=== PATIENT | female | born 1990 | race Caucasian/White ===

== ENCOUNTER 2022-11-04 16:01 | Outpatient (CLI) | payer OTHER, SELFPAY ==
[2022-11-04 18:50] LABS: HDL Cholesterol* 67 mg/dL (>=50); Triglycerides* 118 mg/dL (40-149)
[2022-11-05 19:07] LABS: Cholesterol* 139 mg/dL (90-199); LDL Cholesterol Calculated 48 mg/dL (<100)
== END 2022-11-04 16:02 | disposition home or self-care (01) ==
PROVIDERS: PCP Family Medicine; Visit Provider Registered Nurse
DX: N92.0 Excessive and frequent menstruation with regular cycle (principal); Z13.6 Encounter for screening for cardiovascular disorders
CPT/HCPCS: 80061; 84443

== ENCOUNTER 2022-11-10 07:52 | Outpatient (CLI) | payer OTHER, SELFPAY ==
--- NOTE | 2022-11-10 07:45 | CRLHL7_ITS ---
For Patients: As a result of the Cures Act, medical imaging exams and procedure reports are released immediately into your electronic medical record. You may view this report before your referring provider. If you have questions, please contact your health care provider. DIGITAL DIAGNOSTIC RIGHT MAMMOGRAM USING TOMOSYNTHESIS AND COMPUTER-AIDED DETECTION RIGHT BREAST ULTRASOUND CLINICAL HISTORY: RIGHT breast lump. COMPARISON: None. TECHNIQUE: Digital BILATERAL mammogram in four projections. Tomosynthesis and CAD utilized. Real-time ultrasound imaging of RIGHT breast with imaging documentation. BREAST COMPOSITION: There are areas of scattered fibroglandular density. FINDINGS: BILATERAL mammogram images demonstrate BILATERAL implants are intact. No adenopathy or suspicious masses. No architectural distortion or suspicious calcifications. Targeted RIGHT breast ultrasound performed 6 o`clock 5 cm from the nipple in the area of concern. No sonographic abnormality. No fibrocystic change or mass. IMPRESSION: Normal BILATERAL mammograms and RIGHT breast ultrasound. No evidence of malignancy. RECOMMENDATIONS: Clinical follow-up. Age-appropriate screening mammography. Results and recommendations discussed with the patient. BI-RADS Category 2: Benign A lay language report of this examination will be provided to the patient. Dictated by Matthew Glasgow MD @ 11/10/2022 8:53:33 AM jj/Dictated by: Matthew Glasgow MD @ 11/10/2022 8:53:00 AM (Electronically Signed)
--- NOTE | 2022-11-10 08:15 | CRLHL7_ITS ---
For Patients: As a result of the Cures Act, medical imaging exams and procedure reports are released immediately into your electronic medical record. You may view this report before your referring provider. If you have questions, please contact your health care provider. PLEASE SEE DIGITAL DIAGNOSTIC RIGHT MAMMOGRAM PERFORMED SAME DAY CRL:emily diaz/Dictated by: Matthew Glasgow MD @ 11/10/2022 8:53:00 AM (Electronically Signed)
--- NOTE | 2022-11-10 09:15 | CRLHL7_ITS ---
For Patients: As a result of the Century Cures Act, medical imaging exams and procedure reports are released immediately into your electronic medical record. You may view this report before your referring provider. If you have questions, please contact your health care provider. INDICATION: MENORRHAGIA COMPARISON: none TECHNIQUE: 2D loera scale and color Doppler images were acquired of the pelvis using a transabdominal and transvaginal approach. FINDINGS: Sonographic images demonstrate a normal size and smooth outer contour of the uterus. Uterus measures 9.0 cm in length by 4.3 cm in AP diameter by 4.9 cm in transverse dimension. Right lower uterine segment intramural fibroid measuring 2.0 x 1.8 x 1.7 cm. The endometrial lining measures 13 mm in composite thickness. The right ovary measures 3.7 x 1.4 x 2.4 cm in size and the left ovary measures 3.9 x 2.0 x 1.9 cm. The ovaries demonstrate normal arterial and venous blood flow on color Doppler analysis. There are no suspicious fluid collections within the cul-de-sac. IMPRESSION: Right-sided lower uterine segment intramural fibroid measuring 2 cm. Endometrial thickness 13 millimeters. Dictated by Matthew Glsagow MD @ 11/10/2022 10:26:58 AM (Electronically Signed)
== END 2022-11-10 07:53 | disposition home or self-care (01) ==
LOC: MAMMO 07:52
PROVIDERS: PCP Family Medicine; Visit Provider Registered Nurse
DX: N63.10 Unspecified lump in the right breast, unspecified quadrant (principal); N92.0 Excessive and frequent menstruation with regular cycle; D25.1 Intramural leiomyoma of uterus; R93.89 Abnormal findings on diagnostic imaging of other specified body structures
CPT/HCPCS: 76642; 76830; 76856; 77065; 77067; G0279

== ENCOUNTER 2024-01-05 18:40 | Outpatient (CLI) | payer OTHER, SELFPAY | END 2024-01-05 18:41 | disposition home or self-care (01) | LOC: NFLDREF 18:41 | PROVIDERS: PCP Family Medicine; Visit Provider Registered Nurse | DX: N92.0 Excessive and frequent menstruation with regular cycle (principal) | CPT/HCPCS: 84443 ==

== ENCOUNTER 2024-01-13 15:57 | Outpatient (CLI) | payer OTHER, SELFPAY ==
--- NOTE | 2024-01-13 16:00 | US_ITS ---
Patient: GETACHEW PALMA Facility:?[facility] Patient ID:?[id number] Site Patient ID:?[id number]. Site :?[id number] Study:?US-Pelvis TA/TV-01/13/2024 4:45:14 PM Ordering Physician:SHANE Final Report: INDICATION: menorrhagia COMPARISON: 11/10/2022 TECHNIQUE: 2D loera scale and color Doppler images were acquired of the pelvis using a transabdominal and transvaginal approach. FINDINGS: Circumscribed heterogeneously hypoechoic uterine fibroid is present at the right anterior lower uterine segment measuring 3.8 x 4.4 x 4.0 cm, previously measuring 2.0 cm. Uterus measures 9.6 cm in length by 4.8 cm in AP diameter by 5.4 cm in transverse dimension. The endometrial lining measures 14 mm in composite thickness. The right ovary measures 3.3 x 1.7 x 1.7 in size and the left ovary measures 3.5 x 2.5 x 2.3 cm. The ovaries demonstrate normal arterial and venous blood flow on color Doppler analysis. There are no suspicious fluid collections within the cul-de-sac. Simple left ovarian cyst is present measuring 2.1 x 1.5 x 1.6 cm. IMPRESSION: Increased size of lower uterine segment fibroid now measuring 4.4 cm. This displaces the adjacent endometrium. Endometrium is thickened and heterogeneous measuring 14 millimeters. No endometrial fluid. Simple left ovarian cyst measuring 2.1 cm. Dictated by Matthew Glasgow MD @ 01/14/2024 10:38:52 AM Signed by:?Matthew Glasgow MD @01/14/2024 10:38:52 AM (Electronic Signature)
== END 2024-01-13 15:58 | disposition home or self-care (01) ==
LOC: US 15:58
PROVIDERS: PCP Family Medicine; Visit Provider Registered Nurse
DX: N92.0 Excessive and frequent menstruation with regular cycle (principal); D25.9 Leiomyoma of uterus, unspecified; N83.202 Unspecified ovarian cyst, left side
CPT/HCPCS: 76830; 76856

== ENCOUNTER 2024-04-05 08:50 | Outpatient (CLI) | payer OTHER, SELFPAY | END 2024-04-05 08:51 | disposition home or self-care (01) | LOC: LKVREF 08:51 | PROVIDERS: PCP Family Medicine; Visit Provider Family Medicine | DX: Z13.228 Encounter for screening for other metabolic disorders (principal) | CPT/HCPCS: 80048 ==

== ENCOUNTER 2024-04-27 07:34 | Day surgery (SDC) | payer OTHER, SELFPAY ==
[2024-04-27] VITALS (26 sets, daily range): BP systolic 100–132; BP diastolic 66–94; PULSE 72–109; RESP 12–21; TEMP 36.2–37.6; O2SAT 95–100; BMI 25.6
[2024-04-27] MEDS: LACTATED RINGERS 1000 ML 1,000 ML 100 ML IV ×2 (07:00→10:07)
[2024-04-27] MEDS: SODIUM CHLORIDE 0.9 % (FLUSH) 10 ML SYRINGE IVF (08:22)
[2024-04-27 08:36] LABS: Hemoglobin* 14.8 gm/dL (12.0-16.0)
--- NOTE | 2024-04-27 09:21 | W.PM.GYNPROC ---
Procedure Note Date of procedure: 04/27/24 Will [facility] bill your pro fee for this procedure?: Yes Pre-op diagnosis: 1. Menorrhagia. 2. Right lower uterine segment fibroid. Post-op diagnosis: Same. Procedure: 1. Total laparoscopic hysterectomy. 2. Bilateral-salpingectomies. 3. Diagnostic cystoscopy/ Anesthesia: GETA and other (TAP block.) Complications: None. Surgeon: Racquel Borjas MD Wood Piler: Mandie Almaguer Estimated blood loss (mL): 50 IV fluids (mL): 1,950 Urine Output (mL): 500 Pathology: specimen obtained, sent to pathology (Uterus, bilateral fallopian tubes.) Condition: stable Disposition: PACU Findings: Enlarged globular uterus containing 4-5 cm diameter posterior right lower uterine segment fibroid, weight 196 g, normal fallopian tubes and ovaries bilaterally. Procedure Description: After obtaining informed consent, the patient was taken to the operating room where general anesthesia was obtained without difficulty. She was prepared and draped in the normal sterile fashion in the low dorsal lithotomy position. A Woodard catheter was inserted into the bladder and left to gravity drainage. A medium Graves open-sided speculum was introduced into the vagina. The cervix was visualized and grasped along its anterior lip with a single-tooth tenaculum. The uterus was gently sounded. Sound length was found to be 9.5 cm. The cervix was gently dilated to a #5 dilator. I then placed a large VCare uterine manipulator. The tenaculum and speculum were removed. The green VCare cup was digitally pressed up against the cervix and then cinched in place with the blue accessory cup. I then changed gloves and my attention was turned to the abdomen. The inferior aspect of the umbilical fold was injected with 0.25% Marcaine plain. A 12 mm vertical incision was then made within the umbilical fold using a scalpel. A direct entry technique was used to place an 11 mm laparoscopic port with CO2 gas set to a 5 mmHg. The trocar was removed leaving the sleeve in place. The CO2 gas flow was turned to high flow to achieve pneumoperitoneum. The 10 mm laparoscope was used then to carefully inspect the abdomen and pelvis with findings noted above. Pictures were taken for documentation purposes. The patient was placed in Trendelenburg positioning. Two additional ports were placed in the right (11 mm) and left (5 mm) lower quadrants under direct visualization after first anesthetizing the skin and fascia with 0.25% Marcaine plain. Once the ports were in place, the VCare manipulator was used to elevate the uterus. The ureters were identified bilaterally along their courses in the pelvic sidewalls. The VCare cup was visualized and palpated with a blunt grasper. The left tube was elevated with a graspers. The Olympus Powerseal device was used to dissect the tube from it's ovarian and broad ligament and cornual attachments before removing the tube through a lower port. Excellent hemostasis was obtained. The right tube was elevated with a graspers. The Olympus Powerseal device was used to dissect the right tube from it's ovarian and broad ligament and cornual attachments before removing the tube through a lower port. Excellent hemostasis was obtained. The left round ligament was then sealed in a wide swath and transected with the Olympus Powerseal. Excellent hemostasis was obtained. The broad ligament was then opened using the Olympus Powerseal anteriorly and posteriorly along the cervix from the left within the confines of the VCare cup. Cephald pressure was maintained on the uterine manipulator the whole time. The left uterine vessels were sealed in a wide swath and transected with the Olympus Powerseal, then the tissues over the VCare cup edge on the left side were thinned using the Olympus Powerseal to the midline posteriorly and anteriorly so that the fascial layer could be identified. The right round ligament was then sealed in a wide swath and transected with the Olympus Powerseal. Excellent hemostasis was obtained. The broad ligament was then opened using the halo anteriorly and posteriorly along the cervix from the right within the confines of the VCare cup. Pressure was maintained on the uterine manipulator the whole time. This dissection was difficult and took extra time due to distortion of the uterine anatomy by the large posterior right uterine fibroid. An angled hysteroscope was used for better visualization. The right uterine vessels were sealed in a wide swath and transected with the Olympus Powerseal, then the tissues over the VCare cup edge on the right side were thinned using the Olympus Powerseal to the midline posteriorly and anteriorly so that the fascial layer could be identified. Once an adequate dissection was made circumferentially, the Olympus Powerseal was removed and the [employer]if[employer] bipolar spatula was used to incise the tissue circumferentially around the cervix within the groove of the VCare cup. Once the dissection was completed circumferentially, I was able to go below and remove the uterine manipulator and the uterus. A sterile sponge containing a laparotomy sponge was placed into the vagina to aid in maintaining pneumoperitoneum. The vaginal cuff was reapproximated in a running fashion with a V-Loc suture starting from the left side and running across to the right and then back to the midline where the suture was cut flush with the tissues. The pelvis was copiously irrigated and hemostasis visualized. Preparations were then made for cystoscopy. Methylene blue was administered intravenously along with the IV fluids. The Woodard catheter was removed. The patient was flattened out. Cystoscopy was performed using sterile normal saline as distending medium. The bladder was carefully inspected and noted to be free of filling defects or suture material. Both ureteral orifices were easily visualized and blue-tinged urine jets were noted from both sides. The cystoscope was then removed. The Woodard catheter was replaced into the bladder. I then changed gloves again and my attention was once again turned to the abdomen. The abdomen and pelvis were again irrigated and inspected for hemostasis. There was a tiny arterial bleed from the right lateral aspect of the vaginal cuff closure where it appeared that a small segment of the V lock suture had torn through the tissues. Two interrupted sutures of 0 Vicryl were placed for hemostasis, with the knots tied extracorporeally. Excellent hemostasis was visualized. The right lower quadrant port was removed. The Jamarcus-Emelia device was used to reapproximate the fascia in the right lower quadrant. All remainnig instruments were then removed under direct visualization. Pneumoperitoneum was allowed to escape. The fascia was reapproximated at the umbilicus with an interrupted suture of 0 Vicryl. The skin at all 3 port sites was closed in a subcuticular fashion with 4-0 Vicryl. Surgical glue was then placed over the incisions. The patient tolerated the procedure well. Sponge, lap, needle, and instrument counts were reported as correct x2. The patient was taken to the recovery room awake and in stable condition. She did receive 1 g of IV Ancef preoperatively And 30 mg IV Toradol at the conclusion of the procedure.. Uterine weight was 196 g.
[2024-04-27 09:23] LABS: HCG Qualitative Serum* Negative (Negative)
[2024-04-27] MEDS: CEFAZOLIN 2 GM INJ IVP (09:25)
--- NOTE | 2024-04-27 10:16 | W.ANESCHARGE ---
Anesthesia Charges Start Date/Time Anesthesia Start Date: 04/27/24 Anesthesia Start Time: 09:09 Stop Date/Time Anesthesia Stop Date: 04/27/24 Anesthesia Stop Time: 12:27
--- NOTE | 2024-04-27 10:16 | W.PM.NB ---
Nerve Block Nerve Block Time Seen by Provider: 09:21 Date Seen: 04/27/24 Type of block requested by surgeon for post-operative analgesia: TAP Side: bilateral Time out performed: Yes Verification of patient name: Yes Verification of date of : Yes Site marking: site marked Name of person performing procedure: Tito Continuous monitoring Was continuous monitoring of O2 sat, B/P, phototypesetting equipment monitor, recorded every 15 minutes?: Yes Procedure Checklist: sterile prep, needles and gloves Ultrasound guided. Images saved: Yes Medications given in 5ml increments after negative aspiration: Marcaine %: 0.25 mL: 30 Needle gauge: 20 and Exparel mL: 10 Patient tolerated procedure well: Yes Additional comments: Needle noted between internal oblique and transversus abdominus. Local spread visualized Block Charges Block Charge (with Pro Fee): TAP Bilateral Use of Ultrasound Machine for Block: Yes- US Guidance/pain block
[2024-04-27] MEDS: BUPIVACAINE 0.25% 30 ML INJECTION (10:19)
[2024-04-27] MEDS: METHYLENE BLUE 1 % 10 ml 100 MG INJECTION (11:30)
--- NOTE | 2024-04-27 12:43 | W.ANESCHARGE ---
Anesthesia Charges Start Date/Time Anesthesia Start Date: 04/27/24 Anesthesia Start Time: 09:09 Stop Date/Time Anesthesia Stop Date: 04/27/24 Anesthesia Stop Time: 12:27
[2024-04-27] MEDS: fentaNYL 100 MCG/2 ML inj 50 MCG IVP ×2 (12:47→13:15)
[2024-04-27] MEDS: LACTATED RINGERS 1000 ML 1,000 ML 35 ML IV (13:05)
--- NOTE | 2024-04-27 13:36 | SUR.PHASEI ---
patient met discharge criteria per anesthesia
[2024-04-27] MEDS: HYDROmorphone 0.5 mg/0.5 ml inj IVP (13:45)
[2024-04-27] MEDS: SIMETHICONE 80 MG TAB.CHEW 160 MG PO (13:48)
--- NOTE | 2024-04-27 14:59 | PM.GYNPNPO ---
SUPERVISOR COMPONENT ASSEMBLER - A/P Postoperative Procedures: Procedures Operation Date: 04/27/24 08:45 Actual Procedure Side Surgeon p Total Laparoscopic Hysterectomy, Bilateral Salpingectomy, Diagnostic Cystoscopy Racquel Borjas MD Postoperative day: 0 Postoperative plan: see orders (Will check a stat hemoglobin. If significantly decreased, consider imaging of the abdomen to look for any evidence of intra-abdominal bleeding.) Time Spent With Patient Time: Total time spent is greater than 50% in coordination of care (as documented) at patient's floor/unit and/or counseling patient: Time with patient: less than 15 minutes SUPERVISOR COMPONENT ASSEMBLER- PN:Subj Post-Op Subjective Time Seen by Provider: 14:50 Date Seen: 04/27/24 Post Operative Details: Post-operative day number 0: status post total laparoscopic hysterectomy with bilateral salpingectomy and diagnostic cystoscopy. I was called to see the patient as she was experiencing some sharp pain in the right lower quadrant of her abdomen. She states that the pain is been present ever since she awoke from anesthesia. The pain is nonradiating. She describes tenderness medial and superior to the right lower quadrant incision. The pain feels deep rather than superficial. She denies and bruising or any bleeding from the incisions. She is experiencing no heavy bleeding from the vagina. SUPERVISOR COMPONENT ASSEMBLER-PN: Obj Exam Physical Exam: Vital signs: Temp Pulse Resp BP Pulse Ox O2 Del Method 97.8 F 91 16 101/69 98 Room Air 04/27/24 14:00 04/27/24 14:00 04/27/24 14:00 04/27/24 14:00 04/27/24 14:00 04/27/24 14:00 Constitutional: Constitutional: no acute distress Routine Respiratory Exam: Comments: Normal respiratory effort. Routine Abdominal Exam: Abdominal: Present distended (Mildly) and tenderness (Point tenderness medial and superior to the right lower quadrant port site) Comments: The skin at all three port sites is unremarkable, without erythema or ecchymoses. Surgical glue was present over the incisions and there is no drainage or bleeding. Urinary Catheter Management: Urethral: Cath placed during this visit: yes Urethral indwelling: Yes Reason for continuing: surgical procedure Insertion date: 04/27/24 Insertion time: 10:00 SUPERVISOR COMPONENT ASSEMBLER - PN: Obj Data Labs Labs: Laboratory Results - last 24 hr 04/27/24 08:26 Hgb 14.8 HCG, Qual Negative Blood Type O Negative Antibody Screen NEGATIVE
[2024-04-27] MEDS: OXYCODONE 5 MG TABLET PO ×3 (15:15→23:54)
--- NOTE | 2024-04-27 15:20 | PC.NURSE ---
Nurse note: Pt was BTF from PACU at 1330. Reports sharp RLQ pain at 4/10 on arrival. Dilaudid x1 dose given @ 1345 with short term relief. Pt reports pain significantly increased to 7/[address] Borjas rounded and palpated abdomen. PRN oxycodone first dose given @ 1515. Lap sites x3 RAJIV with dermabond C/D/I. Woodard catheter intact draining clear blue urine. Pt is A&O, VSS and afebrile. Denies nausea or dizziness at this time. PIV in right hand infusing LR @ 35 mL/hr. Stat Hgb ordered per Dr. Borjas and considering CYBER POLICY AND STRATEGY PLANNER pump for pain control. Patient's has been at bedside and attentive to patient's needs.
[2024-04-27] MEDS: KETOROLAC 30 MG/ML inj IVP (18:39)
[2024-04-28] MEDS: KETOROLAC 30 MG/ML inj IVP (00:58)
[2024-04-28 03:10] VITALS: BP 109/66; PULSE 90; RESP 16; TEMP 36.8; O2SAT 96
[2024-04-28] MEDS: LACTATED RINGERS 1000 ML 1,000 ML 35 ML IV (03:11)
[2024-04-28] MEDS: OXYCODONE 5 MG TABLET PO ×4 (05:46→17:14)
[2024-04-28 06:43] LABS: Hemoglobin* 12.1 gm/dL (12.0-16.0)
[2024-04-28 07:00] VITALS: BP 114/77; PULSE 84; RESP 24; TEMP 36.8; O2SAT 99
[2024-04-28 07:07] LABS: Creatinine* 0.8 mg/dL (0.5-1.5); Est. Creatinine Clearance* 77.63; Estimated Glomerular Filt Rate 98 ml/min
--- NOTE | 2024-04-28 07:46 | PC.NURSE ---
END OF SHIFT NOTE: PT PLEASANT AND COOPERATIVE. A&Ox3. DENIES CP, SOB, N/V. AMBULATES WITH SBA AND GB. VSS ON RA; AFEBRILE. ABDOMINAL BINDER ON. PT REPORTS RIGHT SIDED ABD PAIN 2-6/10 WITH RELIEF FROM PRN PAIN MEDS (SEE EMAR). SIMMS IN PLACE, WITH BLUE OUTPUT. LR@35ML/HR. ENCOURAGED PO INTAKE. CALL LIGHT WITHIN PT?S REACH.?
--- NOTE | 2024-04-28 09:01 | P.GYNPN_ITS ---
MOTOR VEHICLE PARTS INTERPRETER - A/P Postoperative Procedures: Procedures Operation Date: 04/27/24 08:45 Actual Procedure Side Surgeon p Total Laparoscopic Hysterectomy, Bilateral Salpingectomy, Diagnostic Cystoscopy Racquel Borjas MD Postoperative day: 1 Postoperative status: marginal pain control and other (I am concerned about the persistent RLQ pain and Hgb drop. Could be musculoskeletal pain form fasical cl osure at port site and dilutional Hgb drop, but will proceed with imaging to rule out intra-abdominal bleeding.) Postoperative plan: see orders (CT scan of abdomen/pelvis with contrast.) Time Spent With Patient Time: Total time spent is greater than 50% in coordination of care (as documented) at patient's floor/unit and/or counseling patient: Time with patient: less than 15 minutes MOTOR VEHICLE PARTS INTERPRETER- PN:Subj Post-Op Subjective Time Seen by Provider: 08:45 Date Seen: 04/28/24 Post Operative Details: Post-operative day number 1: status post total laparoscopic hysterectomy with bilateral salpingectomy and diagnostic cystoscopy. She continues to have persistent right lower quadrant sharp abdominal pain, nonradiating. No pain on the left. Woodard catheter was just removed, has not yet voided. Is passing flatus, no BM. Denies nausea or vomiting. Can ambulate slowly or with assistance. Subjective: pain not well controlled and passing flatus MOTOR VEHICLE PARTS INTERPRETER-PN: Obj Exam Physical Exam: Vital signs: Temp Pulse Resp BP Pulse Ox O2 Del Method 98.2 F 90 16 109/66 96 Room Air 04/28/24 03:10 04/28/24 03:10 04/28/24 03:10 04/28/24 03:10 04/28/24 03:10 04/28/24 03:10 Narrative: 3000 mL positive fluid balance noted. Constitutional: Constitutional: cooperative Comments: Appears fairly comfortable, though sitting very still to control abdominal discomfort. Detailed Abdominal Exam: Comments: Mild distention, tender RLQ Urinary Catheter Management: Urethral: Cath placed during this visit: yes Urethral indwelling: Yes Reason for continuing: surgical procedure Insertion date: 04/27/24 Insertion time: 10:00 MOTOR VEHICLE PARTS INTERPRETER - PN: Obj Data Labs Labs: Laboratory Results - last 24 hr 04/27/24 04/27/24 04/28/24 08:26 15:28 06:15 Hgb 14.0 12.1 Creatinine 0.8 Estimated Creat Clear 77.63 Estimated GFR 98 HCG, Qual Negative Blood Type O Negative Antibody Screen NEGATIVE
--- NOTE | 2024-04-28 09:10 | CRLHL7_ITS ---
For Patients: As a result of the Century Cures Act, medical imaging exams and procedure reports are released immediately into your electronic medical record. You may view this report before your referring provider. If you have questions, please contact your health care provider. Indication: Right lower quadrant pain, decreasing hemoglobin status post laparoscopic hysterectomy Technique: Volumetric multidetector CT images of the abdomen and pelvis were obtained after the administration of intravenous contrast. 69 cc Isovue 370 low osmolar intravenous contrast Comparison: None available. Findings: There is basilar atelectasis and parenchymal scar. The liver is normal in attenuation without intrahepatic biliary ductal dilatation. The portal vein is patent. The gallbladder is contracted. There is no significant common biliary ductal dilatation or abrupt cut off. The spleen is normal in enhancement and size. The stomach and duodenum are grossly unremarkable. The pancreas is normal in enhancement without significant atrophy. The adrenal glands are unremarkable. The kidneys demonstrate preserved corticomedullary differentiation without evidence of obstructive uropathy. There is moderate fluid seen throughout the colon and rectum. The central small bowel is decompressed. The appendix is not visualized. There is no significant mesenteric, retroperitoneal, or pelvic sidewall lymph nodes. The aorta is nonaneurysmal. There is no significant atherosclerotic disease appreciated. Postoperative changes of the pelvis status post hysterectomy with minimal fluid along the margin of the vaginal stump without evidence of hematoma. Otherwise the pelvic viscera are grossly within normal limits. There are scattered foci of intra-abdominal free air and air within the abdominal wall and extraperitoneal space of the pelvis consistent with recent laparoscopic insufflation. The anterior abdominal wall is intact without significant hernias. The lumbar vertebral body heights are grossly maintained in satisfactory alignment without evidence of displaced fracture, lytic or blastic lesion. Impression: Postoperative changes status post recent hysterectomy with trace fluid along the vaginal cuff without evidence of large volume hyperdense accumulation within the abdomen or pelvis to suggest active hemorrhage and/or hematoma formation. Minimal postoperative insufflation gas is seen throughout the dependent abdomen. Please note that all CT scans at this facility use dose modulation, iterative reconstruction, and/or weight-based dosing when appropriate to reduce radiation dose to as low as reasonably achievable. Dictated by Erich Martino MD @ 04/28/2024 11:32:01 AM (Electronically Signed)
[2024-04-28] MEDS: ACETAMINOPHEN 325 MG TABLET 650 MG PO ×2 (09:13→16:06)
--- NOTE | 2024-04-28 12:05 | PM.GYNPNPO ---
RIBBING MACHINE OPERATOR - A/P Postoperative Procedures: Procedures Operation Date: 04/27/24 08:45 Actual Procedure Side Surgeon p Total Laparoscopic Hysterectomy, Bilateral Salpingectomy, Diagnostic Cystoscopy Racquel Borjas MD Postoperative day: 1 Postoperative status: marginal pain control Postoperative plan: routine post-op care Time Spent With Patient Time: Total time spent is greater than 50% in coordination of care (as documented) at patient's floor/unit and/or counseling patient: Time with patient: less than 15 minutes RIBBING MACHINE OPERATOR- PN:Subj Post-Op Subjective Date Seen: 04/28/24 Post Operative Details: CT abdomen and pelvis results reviewed, normal postop changes, no evidence of intra-abdominal bleeding or pathology. RIBBING MACHINE OPERATOR-PN: Obj Exam Physical Exam: Vital signs: Temp Pulse Resp BP Pulse Ox O2 Del Method 98.2 F 90 16 109/66 96 Room Air 04/28/24 03:10 04/28/24 03:10 04/28/24 03:10 04/28/24 03:10 04/28/24 03:10 04/28/24 03:10 Urinary Catheter Management: Urethral: Cath placed during this visit: yes Urethral indwelling: Yes Reason for continuing: surgical procedure Insertion date: 04/27/24 Insertion time: 10:00 RIBBING MACHINE OPERATOR - PN: Obj Data Labs Labs: Laboratory Results - last 24 hr 04/27/24 04/28/24 15:28 06:15 Hgb 14.0 12.1 Creatinine 0.8 Estimated Creat Clear 77.63 Estimated GFR 98
[2024-04-28 13:20] VITALS: BP 128/82; PULSE 74; RESP 20; TEMP 36.8; O2SAT 98
--- NOTE | 2024-04-28 19:25 | PC.NURSE ---
Discharge - Pt alert, oriented, cooperative. Reporting pain as 6/10 that increases with position change. Up with standby assistance in room. Able to void independently, Woodard catheter removed at start of shift with tip intact. Pain managed with medications per MAR with pt reporting improved comfort. Lap sites x 3 open to air and free of drainage. Pt wearing abdominal binder to improve comfort, RN provided education regarding splinting and techniques to decrease pain with movement. Discharge education provided to pt and spouse, understanding verbalized. IV removed with catheter intact. Pt discharged to home via wheelchair with spouse at approximately 1745.
== END 2024-04-28 17:44 | disposition home or self-care (01) ==
LOC: OR 07:37 → MEDSURG 07:37
PROVIDERS: PCP Family Medicine; Visit Provider Obstetrics & Gynecology
PROC: 0UT94ZZ Resection of Uterus, Percutaneous Endoscopic Approach (ICD-10-PCS; CPT 58571; principal; 2024-04-27 08:45)
DX: N92.0 Excessive and frequent menstruation with regular cycle (principal); D25.1 Intramural leiomyoma of uterus; G89.18 Other acute postprocedural pain; R10.31 Right lower quadrant pain; R71.0 Precipitous drop in hematocrit; J45.41 Moderate persistent asthma with (acute) exacerbation
CPT/HCPCS: 58571; 00840; 36415; 64488; 74177; 76942; 81025; 82565; 84703; 85018; 86850; 86900; 86901; 88307; A9270; C9290; J0330; J0665; J0690; J1100; J1170; J1630; J1885; J2250; J2405; J2704; J3010; J3490; J7120; Q9967

== ENCOUNTER 2024-05-06 15:03 | Inpatient (IN) | payer OTHER, SELFPAY ==
[2024-05-06] VITALS (7 sets, daily range): BP systolic 122–137; BP diastolic 78–95; PULSE 86–98; RESP 14–20; TEMP 36.7–37.4; O2SAT 95–98; BMI 25.6; BMI 26.4
--- NOTE | 2024-05-06 15:41 | CRLHL7_ITS ---
For Patients: As a result of the Century Cures Act, medical imaging exams and procedure reports are released immediately into your electronic medical record. You may view this report before your referring provider. If you have questions, please contact your health care provider. Indication: Postop fever and pain Technique: Volumetric multidetector CT images of the abdomen and pelvis were obtained after the administration of intravenous contrast. 69 cc Isovue 370 low osmolar intravenous contrast Comparison: CT abdomen and pelvis April 28, 2024 Findings: There is basilar atelectasis and parenchymal scar. The liver is normal in attenuation without intrahepatic biliary ductal dilatation. The portal vein is patent. The gallbladder is unremarkable without evidence of radiopaque calculus. There is no significant common biliary ductal dilatation or abrupt cut off. The spleen is normal in enhancement and size. There is mild thickening of the gastric antrum and gastric rugal folds. The pancreas is normal in enhancement without significant atrophy. The adrenal glands are unremarkable. The kidneys demonstrate preserved corticomedullary differentiation without evidence of obstructive uropathy. There is [id number] stool seen throughout the colon with questionable mild inflammatory change along the anterior-inferior aspect of the mid sigmoid colon and rectosigmoid colon. The appendix is unremarkable. There is no significant mesenteric, retroperitoneal, or pelvic sidewall lymph nodes. The aorta is nonaneurysmal. There is no significant atherosclerotic disease appreciated. Redemonstration of prior hysterectomy with interval development of a new rim enhancing fluid collection along the vaginal stump measuring 4.2 x 3.4 centimeters in greatest dimension with minimal associated secondary inflammation of adjacent loops of bowel. Previously seen postoperative air throughout the abdominal compartment has resolved from previous exam. No evidence of free intra-abdominal fluid. The anterior abdominal wall is intact without significant hernias. The lumbar vertebral body heights are grossly maintained in satisfactory alignment without evidence of displaced fracture, lytic or blastic lesion. Impression: Interval development of a 3.4 x 4.2 centimeter rim enhancing abscess just along the vaginal cuff of previously seen hysterectomy. There is likely mild secondary inflammatory change of adjacent loops of colon and small bowel. Interval resolution of previously seen scattered foci of insufflation air from previous exam. No other new acute intra-abdominal abnormalities are appreciated. Please note that all CT scans at this facility use dose modulation, iterative reconstruction, and/or weight-based dosing when appropriate to reduce radiation dose to as low as reasonably achievable. Dictated by Erich Martino MD @ 05/06/2024 4:23:07 PM (Electronically Signed)
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
[2024-05-06 15:57] LABS: Lactate* 0.5 mmol/L (0.5-1.9)
[2024-05-06 16:01] LABS: Basophils Percent Auto 0.2 % (0.0-3.0); Eosinophils Percent Auto 1.1 % (0.0-7.0); Hemoglobin* 12.8 gm/dL (12.0-16.0); Immature Granulocytes Pct Auto 0.3 %; Lymphocytes Percent Auto 9.4 % (20-44); Mean Corpuscular HGB Conc 34 gm/dL (32-36); Mean Corpuscular Hemoglobin 30 pg (26-34); Mean Corpuscular Volume 89 fL (80-100); Monocytes Percent Auto 10.3 % (0.0-11.0); Neutrophils Percent Auto 78.7 % (42.0-72.0); Platelet Count* 291 K/uL (140-440); RDW Coefficient of Variation % 12.3 % (11.5-15.5); Red Blood Count 4.28 m/uL (4.00-5.20); White Blood Count* 12.29 K/uL (4.50-11.00)
[2024-05-06] MEDS: 0.9 % SODIUM CHLORIDE 1000 ml 1,000 ML IV (16:02)
[2024-05-06 16:07] LABS: Slide Review Reflex No
[2024-05-06 16:13] LABS: Appearance Urine Clear (Clear); Bilirubin Urine Negative (Negative); Blood Urine 3+ (Negative); Color Urine Yellow (Yellow); Glucose Urine Negative (Negative); Ketones Urine Negative (Negative); Leukocyte Esterase Urine Trace (Negative); Nitrite Urine Negative (Negative); Protein Urine 2+ (Negative); Specific Gravity Urine 1.015 (1.000-1.030); Urobilinogen Urine 0.2 (0.2-1.0); pH Urine 6.5 (5.0-8.5)
[2024-05-06 16:15] LABS: Chloride* 104 mmol/L (96-114)
[2024-05-06 16:16] LABS: Potassium* 3.7 mmol/L (3.6-5.1); Sodium* 137 mmol/L (135-149)
[2024-05-06 16:17] LABS: Albumin* 4.2 g/dL (3.3-5.0)
[2024-05-06 16:18] LABS: Creatinine* 0.8 mg/dL (0.5-1.5); Est. Creatinine Clearance* 77.63; Estimated Glomerular Filt Rate 98 ml/min
[2024-05-06 16:19] LABS: Anion Gap 8 mEq/L (7-15); Blood Urea Nitrogen* 11 mg/dL (5-24); Calcium* 8.9 mg/dL (8.4-10.6); Carbon Dioxide* 25 mmol/L (20-32); Glucose* 106 mg/dL (60-115)
[2024-05-06 16:19] LABS: Bacteria Urine Few; Squamous Epithelial Cell Urine Few (None-Few)
[2024-05-06 16:20] LABS: Alanine Aminotransferase* 36 U/L (4-35); Alkaline Phosphatase* 82 U/L (40-150); Aspartate Amino Transferase* 32 U/L (12-35); Bilirubin Direct* 0.4 mg/dL (0.0-0.5); Bilirubin Total* 0.6 mg/dL (0.1-1.5); Lipase* 39 U/L (23-300); Total Protein* 7.3 g/dL (6.0-8.3)
[2024-05-06 16:41] LABS: C Reactive Protein* 25.6 mg/dL (0.5-1.0)
[2024-05-06] MEDS: KETOROLAC 30 MG/ML inj IVP ×2 (17:22→22:54)
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
[2024-05-06] MEDS: LACTATED RINGERS 1000 ML 1,000 ML 125 ML IV (17:40)
[2024-05-06] MEDS: PIPERACILLIN/TAZOBACTAM 3.375 GM in 0.9 % SODIUM CHLORIDE Mini-bag 100 ML IVPB ×2 (17:50→22:54)
--- NOTE | 2024-05-06 18:17 | ED.NURSE ---
Pt reporting pain at IV site L AC #20G and IV pump issues at this site. #20G IV started in R FA and ABX/IVF switched to new IV site. Pt reporting relief with new IV. Kristopher Rivera/S RN aware.
[2024-05-06] MEDS: ACETAMINOPHEN 325 MG TABLET 650 MG PO (20:04)
[2024-05-07] VITALS (10 sets, daily range): BP systolic 122–147; BP diastolic 79–97; PULSE 90–101; RESP 16–18; TEMP 36.7–37.9; O2SAT 96–99
[2024-05-07] MEDS: LACTATED RINGERS 1000 ML 1,000 ML 125 ML IV ×3 (01:12→20:02)
[2024-05-07] MEDS: PIPERACILLIN/TAZOBACTAM 3.375 GM in 0.9 % SODIUM CHLORIDE Mini-bag 100 ML IVPB ×4 (05:26→22:56)
[2024-05-07] MEDS: KETOROLAC 30 MG/ML inj IVP ×2 (05:38→11:14)
[2024-05-07] MEDS: ONDANSETRON 2 MG/ML inj 4 MG IVP ×3 (05:38→19:23)
[2024-05-07] MEDS: ACETAMINOPHEN 325 MG TABLET 650 MG PO ×3 (05:54→20:02)
[2024-05-07 06:52] LABS: Basophils Absolute Auto 0.04 K/uL (0.00-0.30); Basophils Percent Auto 0.4 % (0.0-3.0); Eosinophils Absolute Auto 0.21 K/uL (0.00-0.50); Hematocrit 35.5 % (33.0-51.0); Hemoglobin* 11.7 gm/dL (12.0-16.0); Immature Granulocytes Abs Auto 0.02 K/uL (0.00-0.30); Immature Granulocytes Pct Auto 0.2 %; Lymphocytes Percent Auto 13.2 % (20-44); Mean Corpuscular HGB Conc 33 gm/dL (32-36); Mean Corpuscular Hemoglobin 30 pg (26-34); Mean Corpuscular Volume 89 fL (80-100); Monocytes Percent Auto 12.1 % (0.0-11.0); Neutrophils Percent Auto 72.1 % (42.0-72.0); Platelet Count* 287 K/uL (140-440); RDW Coefficient of Variation % 12.3 % (11.5-15.5); Red Blood Count 3.97 m/uL (4.00-5.20); White Blood Count* 10.59 K/uL (4.50-11.00)
[2024-05-07 07:16] LABS: Slide Review Reflex No
--- NOTE | 2024-05-07 07:36 | PC.NURSE ---
End of shift note [id number]: Pt alert & oriented x 4 and able to make needs known. She continues on LR at 125 mLs/hr per order. Pt reported abdominal pain near navel as 5/10 at start of shift though declined PRN Dilaudid when discussed. Scheduled Toradol administered per order. Steri strip dressings to abdomen noted to be C/D/I. Pt refuses SCDs. Pt transfers/ambulates independently in room. PRN Tylenol given for temp of 99.8 this morning and PRN Zofran given for c/o nausea.
[2024-05-07] MEDS: DOCUSATE SODIUM 100 MG CAPSULE PO (08:37)
--- NOTE | 2024-05-07 10:32 | P.GYNPN_ITS ---
Progress Note: A&P Assessment and plan (1) Pelvic abscess in female: Problem details: Post-hysterectomy Status: Acute Assessment and Plan: She has had no fever since initiation of Zosyn. White count has normalized overnight. Continues to have considerable pain in her pelvis, which may persist for some time due to inflammation. I am pleased to see evidence of normal bowel function. We did discuss management of constipation with laxative, but she declines at this time. I will continue to follow her temperatures as well as her white blood count on a daily basis. I plan to order pelvic ultrasound early Thursday morning to re-evaluate the size of the abscess. This abscess is of an intermediate size, and may require drainage, but I am pleased by the return of bowel function and normalization of white blood count, and think that continued antibiotic therapy alone is an acceptable strategy. Should intervention be required, either transvaginal drainage or transfer for CT or ultrasound-guided abscess drainage would be 1 consideration, as would laparoscopy or laparotomy with abscess drainage. I discussed these possible approaches with patient. I will continue to follow for culture result. PROBATION AND PAROLE OFFICER- PN:Subj Non-OR Subjective Date Seen: 05/07/24 Interval history: Postoperative day 10 Hospital day 2 Anna is a 33-year-old woman who is status post total laparoscopic hysterectomy, bilateral salpingectomy and cystoscopy on 04/27/2024 for benign indications, readmitted on 05/06/2024 with pelvic abscess adjacent to the vaginal cuff, measuring 4.2 x 3.[address] scan from that day. She has been maintained on Zosyn every 6 hours since admission. Her 1st dose wa s 5:15 p.m. on 05/06/2024. She reports some night sweats last night. She thinks she is overall feeling better than last night. She endorses decreased appetite over the last few days, and some nausea when attempting to eat last night. This was managed with Zofran. This morning, she was able to eat a small amount of solid foods. She is now passing more flatus. She has not had a bowel movement in a couple days. She did have very hard stools at the time of her last bowel movement, and it was quite painful. She has been taking Colace twice daily. The CT scan from 05/06/2024 does show mild to moderate stool within the colon, as well as some inflammation surrounding bowel loops in the pelvis. Pain is currently managed with out Dilaudid. She is using only IV Toradol. She has declined any narcotics due to concerns with further constipation. She is able to ambulate and urinate without difficulty. PROBATION AND PAROLE OFFICER-PN: Obj Exam Physical Exam: Vital signs: Temp Pulse Resp BP Pulse Ox O2 Del Method 98.4 F 91 18 122/80 96 Room Air 05/07/24 07:00 05/07/24 07:00 05/07/24 07:00 05/07/24 07:00 05/07/24 07:00 05/07/24 07:00 Narrative: General: Pleasant, sitting in her chair, appears pained Heart: Regular rate and rhythm, no murmur or gallop Lungs: Clear to auscultation bilaterally Abdomen: Normoactive bowel sounds in all 4 quadrants. Soft throughout, with no tenderness or rigidity noted in her upper abdomen. She has notable tenderness to palpation in the suprapubic region, extending to the right lower quadrant. This is accompanied by voluntary guarding. Lower extremities: No edema or erythema PROBATION AND PAROLE OFFICER - PN: Obj Data Labs Labs: Laboratory Results - last 24 hr 05/06/24 05/06/24 05/07/24 15:52 16:08 06:06 WBC 12.29 H 10.59 RBC 4.28 3.97 L Hgb 12.8 11.7 L Hct 38.0 35.5 MCV 89 89 MCH 30 30 MCHC 34 33 RDW Coeff of Arely 12.3 12.3 Plt Count 291 287 Neut % (Auto) 78.7 H 72.1 H Lymph % (Auto) 9.4 L 13.2 L [place] % (Auto) 10.3 12.1 H Eos % (Auto) 1.1 2.0 Baso % (Auto) 0.2 0.4 Neut # (Auto) 9.70 H 7.60 H Lymph # (Auto) 1.20 1.40 [place] # (Auto) 1.30 H 1.30 H Eos # (Auto) 0.10 0.21 Baso # (Auto) 0.00 0.04 Abs Immat Gran (auto) 0.00 0.02 Imm/Tot Granulo (auto) 0.3 0.2 Sodium 137 Potassium 3.7 Chloride 104 Carbon Dioxide 25 Anion Gap 8 BUN 11 Creatinine 0.8 Estimated Creat Clear 77.63 Estimated GFR 98 Glucose 106 Lactate 0.5 Calcium 8.9 Total Bilirubin 0.6 Direct Bilirubin 0.4 AST 32 ALT 36 H Alkaline Phosphatase 82 C-Reactive Protein 25.6 H Total Protein 7.3 Albumin 4.2 Lipase 39 Urine Color Yellow Urine Appearance Clear Urine pH 6.5 Ur Specific [place] 1.015 Urine Protein 2+ A Urine Glucose (UA) Negative Urine Ketones Negative Urine Blood 3+ A Urine Nitrite Negative Urine Bilirubin Negative Urine Urobilinogen 0.2 Ur Leukocyte Esterase Trace A Urine RBC 2-5 A Urine WBC 2-5 Ur Squamous Epith Cells Few Urine Bacteria Few A
[2024-05-07] MEDS: SIMETHICONE 80 MG TAB.CHEW 160 MG PO (14:32)
--- NOTE | 2024-05-07 15:01 | P.GYNPN_ITS ---
Progress Note: A&P Assessment and plan (1) Pelvic abscess in female: Problem details: Post-hysterectomy Status: Acute Assessment and Plan: continue current management (2) Tension headache: Status: Acute Assessment and Plan: Benadryl 25 mg PO now. This will help with sleep. (3) Chest pain: Status: Acute Assessment and Plan: Given her description, vital sign and exam, I do not suspect cardiopulmonary etiology. Symptoms are mild. Continue to observe. FIELD CROPS HARVEST MACHINE OPERATOR- PN:Subj Non-OR Subjective Date Seen: 05/07/24 Interval history: Postoperative day 10 Hospital day 2 Anna is a 33-year-old woman who is status post total laparoscopic hysterectomy, bilateral salpingectomy and cystoscopy on 04/27/2024 for benign indications, readmitted on 05/06/2024 with pelvic abscess adjacent to the vaginal cuff, measuring 4.2 x 3.[address] scan from that day. She has been maintained on Zosyn every 6 hours since admission. Her 1st dose was 5:15 p.m. on 05/06/2024. I was called by RN with report of chest pain. Anna reports intermittent mild pain over her upper sternum. No change in symptoms with walking, pressing on sternum, inspiration / expiration. She has the sensation of phlegm and needing to cough. She is able to tolerate walking the halls, and was doing so upon my arrival. No tachycardia, tachypnea, hypoxia. She also has a headache wrapping around from her frontal region to her occiput. She didn't sleep well last night. She reports seasonal allergies. FIELD CROPS HARVEST MACHINE OPERATOR-PN: Obj Exam Physical Exam: Vital signs: Temp Pulse Resp BP Pulse Ox O2 Del Method 98.3 F 91 18 138/97 H 98 Room Air 05/07/24 11:00 05/07/24 11:00 05/07/24 11:00 05/07/24 11:00 05/07/24 11:05/07/24 11:00 Narrative: General: Pleasant, appears tired, walking slowing Heart: Regular rate and rhythm, no murmur or gallop Lungs: Clear to auscultation bilaterally Lower extremities: No edema or erythema EKG computer read is sinus rhythm with sinus arrhythmia FIELD CROPS HARVEST MACHINE OPERATOR - PN: Obj Data Labs Labs: Laboratory Results - last 24 hr 05/06/24 05/06/24 05/07/24 15:52 16:08 06:06 WBC 12.29 H 10.59 RBC 4.28 3.97 L Hgb 12.8 11.7 L Hct 38.0 35.5 MCV 89 89 MCH 30 30 MCHC 34 33 RDW Coeff of Arely 12.3 12.3 Plt Count 291 287 Neut % (Auto) 78.7 H 72.1 H Lymph % (Auto) 9.4 L 13.2 L [place] % (Auto) 10.3 12.1 H Eos % (Auto) 1.1 2.0 Baso % (Auto) 0.2 0.4 Neut # (Auto) 9.70 H 7.60 H Lymph # (Auto) 1.20 1.40 [place] # (Auto) 1.30 H 1.30 H Eos # (Auto) 0.10 0.21 Baso # (Auto) 0.00 0.04 Abs Immat Gran (auto) 0.00 0.02 Imm/Tot Granulo (auto) 0.3 0.2 Sodium 137 Potassium 3.7 Chloride 104 Carbon Dioxide 25 Anion Gap 8 BUN 11 Creatinine 0.8 Estimated Creat Clear 77.63 Estimated GFR 98 Glucose 106 Lactate 0.5 Calcium 8.9 Total Bilirubin 0.6 Direct Bilirubin 0.4 AST 32 ALT 36 H Alkaline Phosphatase 82 C-Reactive Protein 25.6 H Total Protein 7.3 Albumin 4.2 Lipase 39 Urine Color Yellow Urine Appearance Clear Urine pH 6.5 Ur Specific [place] 1.015 Urine Protein 2+ A Urine Glucose (UA) Negative Urine Ketones Negative Urine Blood 3+ A Urine Nitrite Negative Urine Bilirubin Negative Urine Urobilinogen 0.2 Ur Leukocyte Esterase Trace A Urine RBC 2-5 A Urine WBC 2-5 Ur Squamous Epith Cells Few Urine Bacteria Few A
--- NOTE | 2024-05-07 15:21 | PC.NURSE ---
End of Shift: Patient pleasant and cooperative, A&O. VSS, afebrile. Dressings on abdomen C/D/I. Patient reports pain at her incision sites today managed with PRN medication, see MAR. Patient has also been reporting nausea this shift, managed with PRN medication, see MAR. Patient reports feeling chest pain and tightness at the end of my shift, as well as feeling slightly short of breath, MD notified, EKG complete. Lung sounds CTA. Gave PRN medication per MD. Independent.
[2024-05-07] MEDS: IBUPROFEN 600 MG TABLET PO (19:22)
[2024-05-07] MEDS: HYDROmorphone 2 MG TABLET PO (22:55)
[2024-05-07] MEDS: diphenhydrAMINE 25 MG CAPSULE PO (22:56)
[2024-05-08] VITALS (8 sets, daily range): BP systolic 116–137; BP diastolic 76–100; PULSE 75–88; RESP 16–20; TEMP 36.6–37.1; O2SAT 94–98
[2024-05-08] MEDS: LACTATED RINGERS 1000 ML 1,000 ML 125 ML IV (02:59)
[2024-05-08] MEDS: IBUPROFEN 600 MG TABLET PO ×3 (05:52→18:03)
[2024-05-08] MEDS: PIPERACILLIN/TAZOBACTAM 3.375 GM in 0.9 % SODIUM CHLORIDE Mini-bag 100 ML IVPB ×4 (05:53→22:47)
[2024-05-08] MEDS: 0.9 % SODIUM CHLORIDE 250 ml IV (05:55)
[2024-05-08] MEDS: ONDANSETRON 2 MG/ML inj 4 MG IVP ×3 (06:03→18:03)
--- NOTE | 2024-05-08 06:39 | PC.NURSE ---
End of shift note [id number]: Pt remains independent with transferring/ambulation and remains on LR at 125 mL/hr. PRN Ibuprofen given for pain control as well as PRN Tylenol to reduce 100.3 temp noted last evening. Temp noted to be 98.6 after receiving Tylenol. Training Program Developer provided update to Dr. Stock who would like pt?s blood cultures resumed if pt has any further fevers of 100.4 or greater. Pt afebrile for the remainder of the shift with last temp of 98.7 noted after 0600. She states she did have some night sweats last night though reported less than the previous night and reported better sleep quality when asked. Pt continent of bladder and reports having BM yesterday (05/07/24). Pt requested to take PRN Dilaudid at HS for what she reported as 7/10 abdominal pain which was effective upon followup. Ice has also been utilized for pain control throughout the shift. Incisions to abdomen remain STEAM PRESS OPERATOR with steri strips in place and no warmth, edema, redness or drainage observed upon inspection. Pt remains alert & oriented x 4 and able to make needs known. Intermittent nausea effectively treated with PRN Zofran IVP. Pt remains on IV ABX to treat post op abscess. ?
[2024-05-08 07:24] LABS: Basophils Absolute Auto 0.03 K/uL (0.00-0.30); Basophils Percent Auto 0.3 % (0.0-3.0); Eosinophils Absolute Auto 0.33 K/uL (0.00-0.50); Eosinophils Percent Auto 3.7 % (0.0-7.0); Hematocrit 33.1 % (33.0-51.0); Immature Granulocytes Abs Auto 0.01 K/uL (0.00-0.30); Immature Granulocytes Pct Auto 0.1 %; Lymphocytes Percent Auto 15.3 % (20-44); Mean Corpuscular HGB Conc 33 gm/dL (32-36); Mean Corpuscular Hemoglobin 30 pg (26-34); Mean Corpuscular Volume 90 fL (80-100); Monocytes Percent Auto 10.6 % (0.0-11.0); Platelet Count* 289 K/uL (140-440); RDW Coefficient of Variation % 12.5 % (11.5-15.5); Red Blood Count 3.67 m/uL (4.00-5.20)
[2024-05-08] MEDS: ACETAMINOPHEN 325 MG TABLET 650 MG PO ×2 (07:40→14:28)
[2024-05-08 07:43] LABS: Slide Review Reflex No
--- NOTE | 2024-05-08 11:42 | PM.GYNPNNOR ---
Progress Note: A&P Assessment and plan (1) Pelvic abscess in female: Problem details: Post-hysterectomy Status: Acute Assessment and Plan: Low-grade fever last night. Despite that, white count continues in normal range. Continues to have pain in her pelvis and abdomen, which may persist for some time due to inflammation, but it does seem to have improved on exam. I am pleased to see evidence of normal bowel function and return of bowel movements. I will continue to follow her temperatures as well as her white blood count on a daily basis. I plan to order pelvic ultrasound early Thursday morning to re-evaluate the size of the abscess. This abscess is of an intermediate size, and may require drainage, but I think that continued antibiotic therapy alone is an acceptable strategy. Should intervention be required, transfer for CT or ultrasound-guided abscess drainage would be my recommended approach. To this end, I have ordered transabdominal ultrasound first thing tomorrow morning for reassessment of size of abscess. I favor continuation of IV antibiotics until afebrile for at least 48 hours, which would at this point last until tomorrow night. BUSINESS DEVELOPMENT DIRECTOR- PN:Subj Non-OR Subjective Date Seen: 05/08/24 Interval history: Postoperative day 11 Hospital day 3 Anna is a 33-year-old woman who is status post total laparoscopic hysterectomy, bilateral salpingectomy and cystoscopy on 04/27/2024 for benign indications, readmitted on 05/06/2024 with pelvic abscess adjacent to the vaginal cuff, measuring 4.2 x [address] scan from that day. She has been maintained on Zosyn every 6 hours since admission. Her 1st dose was 5:15 p.m. on 05/06/2024. She did have two elevated temps last night, the highest 100.3 at 8:02 PM. She did not feel particularly unwell at the time. She took Benadryl to sleep last night, and had a good night's sleep. She actually feels much better today. She was able to have a bowel movement. She had some upper substernal discomfort yesterday afternoon, but she was able to cough up some phlegm and feels better now. She still has some abdominal pain, worst in the periumbilical and suprapubic regions, with some just medial and superior to the RLQ port site as well. She finally took a little Dilaudid prior to bed last night, but otherwise hasn't required it. Pain is not inhibiting ambulation. BUSINESS DEVELOPMENT DIRECTOR-PN: Obj Exam Physical Exam: Vital signs: Temp Pulse Resp BP Pulse Ox O2 Del Method 98.7 F 79 20 128/85 94 Room Air 05/08/24 08:45 05/08/24 08:46 05/08/24 08:46 05/08/24 08:45 05/08/24 08:45 05/08/24 08:45 Narrative: General: Pleasant, sitting in her chair, appears pained Heart: Regular rate and rhythm, no murmur or gallop Lungs: Clear to auscultation bilaterally Abdomen: Normoactive bowel sounds in all 4 quadrants. Soft throughout, with no tenderness or rigidity noted in her upper abdomen. She has notable tenderness to palpation in the suprapubic region and periumbilical region. This is accompanied by guarding. Lower extremities: No edema or erythema BUSINESS DEVELOPMENT DIRECTOR - PN: Obj Data Labs Labs: Laboratory Results - last 24 hr 05/08/24 06:28 WBC 9.00 RBC 3.67 L Hgb 11.0 L Hct 33.1 MCV 90 MCH 30 MCHC 33 RDW Coeff of Arely 12.5 Plt Count 289 Neut % (Auto) 70.0 Lymph % (Auto) 15.3 L [place] % (Auto) 10.6 Eos % (Auto) 3.7 Baso % (Auto) 0.3 Neut # (Auto) 6.30 Lymph # (Auto) 1.40 [place] # (Auto) 1.00 H Eos # (Auto) 0.33 Baso # (Auto) 0.03 Abs Immat Gran (auto) 0.01 Imm/Tot Granulo (auto) 0.1
[2024-05-08] MEDS: DOCUSATE SODIUM 100 MG CAPSULE PO (14:28)
--- NOTE | 2024-05-08 15:16 | PC.NURSE ---
End of shift: Patient pleasant and cooperative, A&O. VSS, afebrile. Patient reports pain in her abdomen this shift, managed with PRN medication, see MAR. Tolerating regular diet.
[2024-05-08] MEDS: HYDROmorphone 2 MG TABLET PO (22:46)
[2024-05-08] MEDS: diphenhydrAMINE 25 MG CAPSULE PO (22:46)
[2024-05-09] MEDS: HYDROCODONE/ACETAMIN 7.5-325 TABLET 1 TAB PO ×2 (03:35→10:52)
[2024-05-09 03:38] VITALS: BP 139/102; PULSE 82; RESP 16; TEMP 37.1; O2SAT 98
[2024-05-09] MEDS: HYDROmorphone 2 MG TABLET PO (05:37)
[2024-05-09] MEDS: 0.9 % SODIUM CHLORIDE 250 ml IV (05:38)
[2024-05-09] MEDS: PIPERACILLIN/TAZOBACTAM 3.375 GM in 0.9 % SODIUM CHLORIDE Mini-bag 100 ML IVPB ×2 (05:38→10:53)
[2024-05-09] MEDS: ONDANSETRON 2 MG/ML inj 4 MG IVP (05:50)
[2024-05-09 06:19] LABS: Basophils Absolute Auto 0.03 K/uL (0.00-0.30); Basophils Percent Auto 0.4 % (0.0-3.0); Eosinophils Absolute Auto 0.52 K/uL (0.00-0.50); Eosinophils Percent Auto 6.8 % (0.0-7.0); Hematocrit 35.4 % (33.0-51.0); Hemoglobin* 11.6 gm/dL (12.0-16.0); Immature Granulocytes Abs Auto 0.06 K/uL (0.00-0.30); Immature Granulocytes Pct Auto 0.8 %; Lymphocytes Absolute Auto 1.56 K/uL (0.90-2.90); Lymphocytes Percent Auto 20.4 % (20-44); Mean Corpuscular HGB Conc 33 gm/dL (32-36); Mean Corpuscular Hemoglobin 29 pg (26-34); Mean Corpuscular Volume 90 fL (80-100); Neutrophils Absolute Auto 4.77 K/uL (1.7-7.0); Neutrophils Percent Auto 62.6 % (42.0-72.0); Platelet Count* 357 K/uL (140-440); RDW Coefficient of Variation % 12.5 % (11.5-15.5); Red Blood Count 3.94 m/uL (4.00-5.20); White Blood Count* 7.63 K/uL (4.50-11.00)
[2024-05-09 06:22] LABS: Slide Review Reflex No
--- NOTE | 2024-05-09 06:30 | PC.NURSE ---
shift note 15-19: Pt is A&O, anxious about having two dime sized amounts of blood tinged vaginal drainage that fell to the floor when pt pulled her pants down to use the BR, MD updated and MD stated that the drainage was normal and no new orders received, pt updated. Pt with pain 5/10, PRN Motrin given and obtained order for PRN [place] for pt to use for breakthrough pain. Pt given PRN Zofran for c/o of nausea, effective with no emesis. Pt up independent, walked the halls x1. [place] INESSA, CP.
--- NOTE | 2024-05-09 06:53 | PC.NURSE ---
End of shift note [id number]: Pt remains alert & oriented x 4 and able to make needs known. PRN Zofran given x 1 per pt request. 6-05/11 abdominal pain managed with both PRN [place] and Dilaudid throughout the shift. Pt remains independent with transferring and ambulation and continent of bladder. IV to R FA patent and SL. Incisions to abdomen RAJIV with steri strips in place and no warmth, edema, redness or drainage observed. Pt has followup ultrasound scheduled for 1130 today. Pt reports coughing up phlegm with some green in color yesterday when asked though this was not observed by staff. Lung sounds clear to all lobes bilaterally. Pt has been afebrile throughout the shift.
[2024-05-09 08:24] VITALS: BP 145/98; PULSE 73; RESP 16; RESP 18; TEMP 37.3; O2SAT 94
[2024-05-09] MEDS: IBUPROFEN 600 MG TABLET PO (08:35)
[2024-05-09] MEDS: ACETAMINOPHEN 325 MG TABLET 650 MG PO (10:52)
[2024-05-09 11:00] VITALS: BP 133/93; PULSE 85; RESP 20; TEMP 37.4; O2SAT 94
--- NOTE | 2024-05-09 11:30 | CRLHL7_ITS ---
For Patients: As a result of the Cures Act, medical imaging exams and procedure reports are released immediately into your electronic medical record. You may view this report before your referring provider. If you have questions, please contact your health care provider. INDICATION: post hysterectomy pelvic abscess COMPARISON: CT 05/06/2024 TECHNIQUE: 2D loera scale and color Doppler images were acquired of the pelvis using a transabdominal approach. FINDINGS: Status post hysterectomy. Irregular complex fluid collection is present measures 5.1 x 3.1 x 2.7 cm. No internal vascularity. IMPRESSION: Deep pelvic abscess measuring 5.1 x 3.1 x 2.7 cm. Dictated by Matthew Glasgow MD @ 05/10/2024 5:58:59 AM (Electronically Signed)
--- NOTE | 2024-05-09 13:01 | P.DS_ITS ---
DS: Providers Provider Time Seen by Provider: 08:00 Date Seen: 05/09/24 Date of admission: 05/06/24 18:13 Primary care physician: Yomi Becerra MD Admitting Clinician: Opal Recinos MD Attending Physician on discharge: Racquel Borjas MD Date of Discharge: 05/09/24 DS: Diagnosis Discharge Diagnosis (1) Pelvic abscess in female: Status: Acute Problem details: Post-hysterectomy DOOR TO DOOR SALESMAN-Discharge Summary Hospital Course Hospital Course Narrative: Patient is a 33 year old admitted on 05/06/2024 for vaginal cuff abscess following total laparoscopic hysterectomy. Presenting complaint was fever and abdominal/pelvic pain. The patient is status post total laparoscopic hysterectomy, bilateral salpingectomy and cystoscopy on 04/27/2024 for benign indications on the day of admission, a CT scan showed a rim-enhancing fluid collection measuring 4.2 x 3.4 cm at the vaginal cuff. Her white blood cell count was elevated at 12.29, with a left shift. She was admitted to the hospital and treated with IV Zosyn. Her highest documented temperature following admission was 100.3? F on 05/07/2024 at 8:02 p.m.. Since then, she has been afebrile. Her white blood cell count has decreased to 7.63, which is normal, and the differential has normalized. Her pain is still present, but much improved. Today, her main complaint was a headache that she attributes to the Dilaudid she received for pain. She has also had some mild nausea for which she has received ondansetron. She complains of a little bit of red vaginal bleeding that she notices when she goes to the bathroom. She is not soaking pads. She is having loose stools today. Transabdominal ultrasound today shows a fluid collection seen midline in the pelvis measuring 5.1 x 3.1 x 2.7 cm. My impression is that this is not significantly changed from the measurements by CT scan on admission. Certainly, there is no indication that the abscess is significantly larger. Time Spent with Patient Time attestation: Total time spent providing and/or coordinating discharge services: Time spent: Greater than 30 minutes DOOR TO DOOR SALESMAN - Exam Physical Exam: Vital signs: Temp Pulse Resp BP Pulse Ox O2 Del Method 99.3 F 85 20 133/93 H 94 Room Air 05/09/24 11:00 05/09/24 11:00 05/09/24 11:00 05/09/24 11:00 05/09/24 11:00 05/09/24 11:00 Constitutional: Constitutional: no acute distress Routine Respiratory Exam: Respiratory: Present CTA bilaterally Comments: Normal respiratory effort. Routine Cardiovascular Exam: Cardiovascular: Present RRR Routine Abdominal Exam: Abdominal: Present soft; Absent distended DOOR TO DOOR SALESMAN - DS: Data Data Completed and Pending Labs on day of discharge: Labs from last 24 hours 05/09/24 05:54 WBC 7.63 RBC 3.94 L Hgb 11.6 L Hct 35.4 MCV 90 MCH 29 MCHC 33 RDW Coeff of Arely 12.5 Plt Count 357 Neut % (Auto) 62.6 Lymph % (Auto) 20.4 [place] % (Auto) 9.0 Eos % (Auto) 6.8 Baso % (Auto) 0.4 Neut # (Auto) 4.77 Lymph # (Auto) 1.56 [place] # (Auto) 0.70 Eos # (Auto) 0.52 H Baso # (Auto) 0.03 Abs Immat Gran (auto) 0.06 Imm/Tot Granulo (auto) 0.8 Preliminary micro results at discharge 05/06/24 17:05 Blood Culture - Preliminary Blood NO GROWTH AFTER 48 HOURS 05/06/24 17:05 Blood Culture - Preliminary Blood NO GROWTH AFTER 48 HOURS Discharge Plan Discharge Disposition: Home, Self-Care Date of Admission: 05/06/24 18:13 Attending Provider on Discharge: Racquel Borjas Primary Care Provider: Yomi Becerra Condition: Stable Anticipated Discharge Date/Time: 05/09/24 13:09 Discharge Medications: New ibuprofen 600 mg Tablet 600 mg PO Q6H PRNQty: 30 0RF ondansetron 4 mg tablet,disintegrating 4 mg PO Q6-8H PRN (Reason: nausea and vomiting) Qty: 20 0RF oxycodone 5 mg tablet 5 mg PO Q6H PRN (Reason: pain) Qty: 20 0RF amoxicillin-pot clavulanate 875-125 mg tablet 1 tab PO BID Qty: 28 0RF Continued fluticasone propion-salmeterol [Wixela Inhub] 500-50 mcg/dose blister with device 1 inh inhalation BID Qty: 180 3RF albuterol sulfate [Proventil HFA] 90 mcg/actuation HFA aerosol inhaler 2 puff inhalation Q6H PRN (Reason: shortness of breath or wheezing) Qty: 25.5 5RF montelukast [Singulair] 10 mg tablet 10 mg PO QDAY Qty: 90 3RF fexofenadine [Agustina Allergy] 60 mg tablet 60 mg PO BID ibuprofen 600 mg Tablet 600 mg PO Q6H Qty: 30 0RF oxycodone 5 mg Tablet 5 mg PO Q6H PRN (Reason: Moderate Pain) Qty: 20 0RF docusate sodium [Colace] 100 mg capsule 100 mg PO DAILY Qty: 30 0RF Discharge Orders: Discharge Order (Routine); Ordered 05/09/24 Ordered By: Racquel Borjas Activity Level: Activity as Tolerated and No strenuous activity Discharge Diet: Regular Follow Up Appointments: Yomi Becerra MD [Primary Care Provider] - Forms: [facility] Info Instructions
[2024-05-09] MEDS: ONDANSETRON ODT 4 MG TAB PO (13:24)
--- NOTE | 2024-05-09 17:46 | PC.NURSE ---
Nursing Care Hours: [id number] Pt this shift calm and cooperative, alert and oriented, independent in the room. Pain 5/10, treated per eMAR. IV infiltrated, removed. New IV attmept x2 without success. OB doctor changing order to PO, so no IV needed. VSS. Pt voiding. Decreased appetite. Mild nausea after pain med administration. BS active. Discharge instructions went over with pt and spouse. All questions and concerns addressed. Pt wheeled out to vehicle in stable condition.
== END 2024-05-09 14:14 | disposition home or self-care (01) | DRG 863 ==
LOC: ED 16:04 → MEDSURG 18:15
PROVIDERS: Obstetrics & Gynecology; Admitting Provider Obstetrics & Gynecology; Emergency Provider Family Medicine; PCP Family Medicine; Visit Provider Obstetrics & Gynecology
DX: T81.43XA Infection following a procedure, organ and space surgical site, initial encounter (principal); N73.0 Acute parametritis and pelvic cellulitis; Z16.24 Resistance to multiple antibiotics; B96.89 Other specified bacterial agents as the cause of diseases classified elsewhere; B95.2 Enterococcus as the cause of diseases classified elsewhere; G44.209 Tension-type headache, unspecified, not intractable; R07.9 Chest pain, unspecified; J45.40 Moderate persistent asthma, uncomplicated; Z90.710 Acquired absence of both cervix and uterus; Z90.79 Acquired absence of other genital organ(s)
CPT/HCPCS: 36415; 74177; 76856; 80048; 80076; 81001; 83605; 83690; 85025; 86140; 87040; 87070; 87086; 87186; 87205; 99284; 99285; A9270; J1885; J2405; J2543; J7030; J7050; J7120; Q9967

== ENCOUNTER 2024-05-16 12:54 | Outpatient (CLI) | payer OTHER, SELFPAY ==
--- NOTE | 2024-05-16 13:00 | CRLHL7_ITS ---
For Patients: As a result of the Cures Act, medical imaging exams and procedure reports are released immediately into your electronic medical record. You may view this report before your referring provider. If you have questions, please contact your health care provider. INDICATION: Pelvic abscess post hysterectomy. TECHNIQUE: Transabdominal pelvic ultrasound. COMPARISON: 05/09/2024 pelvic ultrasound and 05/06/2024 CT. FINDINGS: Prior hysterectomy. Previously seen pelvic fluid collection is not visible today. Ovaries were seen and are grossly normal. No adnexal mass. No free fluid. IMPRESSION: Previously seen pelvic fluid collection is not visible today. Dictated by Ignacio Ching MD @ 05/17/2024 3:45:20 PM (Electronically Signed)
== END 2024-05-16 12:55 | disposition home or self-care (01) ==
LOC: US 12:55
PROVIDERS: PCP Family Medicine; Visit Provider Obstetrics & Gynecology
DX: N73.9 Female pelvic inflammatory disease, unspecified (principal)
CPT/HCPCS: 76856

== ENCOUNTER 2024-09-20 09:17 | Outpatient (CLI) | payer OTHER, SELFPAY | END 2024-09-20 09:18 | disposition home or self-care (01) | LOC: LKVREF 09:19 | PROVIDERS: PCP Family Medicine; Visit Provider Family Medicine | DX: Z01.818 Encounter for other preprocedural examination (principal) | CPT/HCPCS: 80048 ==

== ENCOUNTER 2024-12-05 10:54 | Outpatient (CLI) | payer OTHER, SELFPAY | END 2024-12-05 10:55 | disposition home or self-care (01) | LOC: NFLDUCREF 10:54 | PROVIDERS: PCP Family Medicine; Visit Provider Nurse Practitioner Family | DX: N32.89 Other specified disorders of bladder (principal) | CPT/HCPCS: 87086; 87186 ==

== ENCOUNTER 2025-02-24 10:56 | Outpatient (CLI) | payer OTHER, SELFPAY | END 2025-02-24 10:57 | disposition home or self-care (01) | PROVIDERS: PCP Family Medicine; Visit Provider Registered Nurse | DX: R10.2 Pelvic and perineal pain (principal); R23.2 Flushing; R53.83 Other fatigue; Z79.51 Long term (current) use of inhaled steroids | CPT/HCPCS: 82306; 82652; 84443; 87086 ==

== ENCOUNTER 2025-03-01 10:09 | Outpatient (CLI) | payer OTHER, SELFPAY ==
--- NOTE | 2025-03-01 10:00 | CRLHL7_ITS ---
For Patients: As a result of the Century Cures Act, medical imaging exams and procedure reports are released immediately into your electronic medical record. You may view this report before your referring provider. If you have questions, please contact your health care provider. INDICATION: Chronic pelvic pain. TECHNIQUE: Ultrasound pelvis transabdominal and transvaginal for better assessment or to better visualize the endometrium. Real-time sonographic images with spectral and color Doppler imaging of the ovaries were obtained. COMPARISON: Pelvic ultrasound 01/13/2024. FINDINGS: Uterus: Status post hysterectomy. No pelvic mass is identified. Right ovary: Normal right ovary measuring 3.2 x 2.0 x 2.4 cm. Tiny right ovarian follicles are present. Arterial and venous blood flow to the right ovary is documented. Left ovary normal left ovary measuring 2.8 x 2.2 x 2.7 centimeters. Tiny left ovarian follicles are present. Arterial and venous blood flow to the left ovary is documented. Cul-de-sac: No free fluid. IMPRESSION: 1. Status post hysterectomy. 2. Normal ovaries. Dictated by Daniel Mariano MD @ 03/01/2025 1:12:24 PM (Electronically Signed)
== END 2025-03-01 10:10 | disposition home or self-care (01) ==
LOC: US 10:09
PROVIDERS: PCP Family Medicine; Visit Provider Registered Nurse
DX: R10.2 Pelvic and perineal pain (principal); R14.0 Abdominal distension (gaseous)
CPT/HCPCS: 76830; 76856; 93976

== ENCOUNTER 2025-06-08 10:49 | Outpatient (CLI) | payer OTHER, SELFPAY | END 2025-06-08 10:50 | disposition home or self-care (01) | LOC: NFLDREF 06-14 12:16 | PROVIDERS: PCP Family Medicine; Referring Provider Family Medicine; Visit Provider Registered Nurse | DX: E55.9 Vitamin D deficiency, unspecified (principal) | CPT/HCPCS: 82306 ==

== ENCOUNTER 2025-07-17 11:54 | Outpatient (CLI) | payer OTHER, SELFPAY ==
[2025-07-17 15:56] LABS: Chlamydia DNA Amplified* NOT DETECTED (No Detected); GC DNA Amplified* NOT DETECTED (No Detected)
== END 2025-07-17 11:55 | disposition home or self-care (01) ==
PROVIDERS: PCP Family Medicine; Visit Provider Advanced Practice Midwife
DX: N89.8 Other specified noninflammatory disorders of vagina (principal); Z11.3 Encounter for screening for infections with a predominantly sexual mode of transmission
CPT/HCPCS: 87086; 87491; 87591

== ENCOUNTER 2025-08-04 09:44 | Outpatient (CLI) | payer OTHER, SELFPAY ==
[2025-08-04 11:54] LABS: Bacterial Vaginosis* Negative (Negative); Candida glab/krus NOT DETECTED (No Detected)
== END 2025-08-04 09:45 | disposition home or self-care (01) ==
LOC: NFLDREF 09:44
PROVIDERS: PCP Family Medicine; Visit Provider Advanced Practice Midwife
DX: N89.8 Other specified noninflammatory disorders of vagina (principal)
CPT/HCPCS: 81513; 87481; 87661

== ENCOUNTER 2025-09-22 09:28 | Outpatient (CLI) | payer OTHER, SELFPAY | END 2025-09-22 09:29 | disposition home or self-care (01) | PROVIDERS: PCP Family Medicine; Visit Provider Family Medicine | DX: R10.31 Right lower quadrant pain (principal); R23.2 Flushing | CPT/HCPCS: 83001; 84443; 86140 ==

== ENCOUNTER 2025-10-03 07:34 | Outpatient (CLI) | payer OTHER, SELFPAY ==
--- NOTE | 2025-10-03 08:00 | CRLHL7_ITS ---
For Patients: As a result of the Century Cures Act, medical imaging exams and procedure reports are released immediately into your electronic medical record. You may view this report before your referring provider. If you have questions, please contact your health care provider. Indication: RLQ PAIN Technique: CT Abdomen/Pelvis 77CC ISOVUE 370 intravenous contrast Please note that all CT scans at this facility use dose modulation, iterative reconstruction, and/or weight-based dosing when appropriate to reduce radiation dose to as low as reasonably achievable. Comparison: Pelvic ultrasound 03/01/2025 Findings: Lung bases are clear. Visualized breast implants intact. Mild decreased hepatic attenuation. Normal gallbladder. Adrenal glands are within normal limits. Normal kidneys. Spleen is normal. Normal pancreas. No free air, free fluid or adenopathy. Uterus absent. Normal ovaries. Bladder unremarkable. No bowel obstruction. Normal appendix. No bowel wall thickening. No hiatal hernia. Small bowel loops appear unremarkable. No fracture. No abdominal wall hernia. Impression: Normal appendix. Mild hepatic steatosis. No acute findings. Please note that all CT scans at this facility use dose modulation, iterative reconstruction, and/or weight-based dosing when appropriate to reduce radiation dose to as low as reasonably achievable. Dictated by Matthew Glasgow MD @ 10/03/2025 11:16:52 AM (Electronically Signed)
== END 2025-10-03 07:35 | disposition home or self-care (01) ==
LOC: CT 07:36
PROVIDERS: PCP Family Medicine; Visit Provider Family Medicine
DX: R10.31 Right lower quadrant pain (principal); R19.5 Other fecal abnormalities
CPT/HCPCS: 74177; Q9967

== ENCOUNTER 2025-10-04 09:00 | Outpatient (CLI) | payer OTHER, SELFPAY | END 2025-10-04 09:01 | disposition home or self-care (01) | LOC: NFLDREF 10-09 08:20 | PROVIDERS: PCP Family Medicine; Referring Provider Family Medicine; Visit Provider Family Medicine | DX: R10.31 Right lower quadrant pain (principal) | CPT/HCPCS: 83993 ==